=== PATIENT | male | born 1995 | race Caucasian/White ===

== ENCOUNTER 2017-06-07 14:38 | Emergency (ER) | payer BC, OTHER ==
[~2017-06-07] VITALS: Ht 182.9 cm; Wt 79.0 kg
[2017-06-07 14:49] VITALS: Ht 182.9 cm; Wt 79.0 kg
--- NOTE | 2017-06-07 16:45 | ERD ---
ER Documentation Chief Complaint Date/Time DATE: 06/07/17 TIME: 16:41 Chief Complaint Bleeding at the head of the penis, happened during shower. HPI This is a 22-year-old male presents to the ER stating that he was in shower cleaning his pain is pulled back the foreskin of the penis too far and began to bleed. Patient denies any swelling of the area, bleeding was controlled before arriving to the ER he denies any penis pain. He denies any urinary frequency or dysuria. He has not had any fevers or chills. He denies any discharge from the penis. ROS 12 point review of systems was done, all negative except per HPI. Medications Home Meds No Active Prescriptions or Reported Meds Allergies Allergies: Coded Allergies: No Known Allergies (Verified Allergy, Unknown, 08/25/13) PMhx/Soc Medical and Surgical Hx: pt denies Medical Hx History of Surgery: Yes (SX ON ROOF OF MOUTH) Anesthesia Reaction: No Hx Neurological Disorder: No Hx Respiratory Disorders: No Hx Cardiac Disorders: No Hx Psychiatric Problems: No Hx Miscellaneous Medical Probl: No Hx Alcohol Use: No Hx Substance Use: No Hx Tobacco Use: No Smoking Status: Never smoker Physical Exam Vitals Vital Signs Date Time Temp Pulse Resp B/P Pulse Ox O2 Delivery O2 Flow Rate FiO2 06/07/17 14:49 97.9 56 20 130/63 97 Physical Exam GENERAL: The patient is well developed and appropriate for usual state of health , in no apparent distress. HEENT: Atraumatic CHEST: Clear to auscultation bilaterally. There are no rales, wheezes or rhonchi. HEART: Regular rate and rhythm. No murmurs, clicks, rubs or gallops. : the frenulum of the penis is slightly torn, there is minor bleeding, no discharge from the penis. no evidence of phimosis or paraphimosis. no testicular pain or swelling on palpation. NEURO: Alert and oriented SKIN: There is no apparent rash or petechia. The skin is warm and dry. Procedures/MDM This is a 22-year-old male presents to the ER with bleeding from his penis which has now resolved. On physical examination there was a small tear to the frenulum of the penis. Patient was given gauze to apply pressure. He was advised to follow-up with a urologist if bleeding returns or if any other symptoms occur. At this time patient does not need any sutures. He has not had any evidence of phimosis or paraphimosis. Patient is to follow-up with his primary care doctor within 1-2 days return to ER sooner if symptoms worsen. Patient my medical decision making with the patient he understands and agrees with plan Departure Diagnosis: Primary Impression: Bleeding of penis Condition: Stable Patient Instructions: Care of the Uncircumcised Penis Referrals: CHRISTINA HOANG Additional Instructions: Call your primary care doctor TOMORROW for an appointment during the next 1-2 days.See the doctor sooner or return here if your condition worsens before your appointment time. YOU MAY WANT TO FOLLOW UP WITH A UROLOGIST, PLEASE ASK YOUR PCP FOR AN AUTHORIZATION KEYANA GREENBERG Jun 07, 2017 16:45
== END 2017-06-07 16:53 | disposition home or self-care (01) ==
LOC: FTE 14:38
DX: N48.89 Other specified disorders of penis (principal)
CPT/HCPCS: 99282